=== PATIENT | male | born 1975 | race Caucasian/White ===

== ENCOUNTER 2016-05-16 09:05 | Emergency (ER) | payer OTHER ==
--- NOTE | 2016-05-17 10:00 | ER ---
ADMIT: 05/16/2016 RM/LOC: [facility] MR#: [id number] [address] [id number] LORIE GRIDER [address] [place] [id number] Emergency Room Report SEX: M AGE: 41 : 1975 DATE: 05/16/2016 ADDENDUM: A 41-year-old white male coming in after having a syncopal episode at work and hitting his head. CT scan was negative. Labs; CBC, chemistry, drug screen, urine alcohol all negative. EKG nothing acute. Evidently, there is question whether this happens to him more often or not. His chest x-ray was also negative. We gave him a liter of fluid. At this time, we did discharge him. He needs to follow up with his doctor. He has . He may go back to work tomorrow but no heavy equipment. Also, no driving until he sees his doctor. CONDITION ON DISCHARGE: Fair. Demetris Tang MD/ [place] JOB #: [id number] CC: Demetris Tang MD, Attending Physician UNKNOWN, Family Physician
== END 2016-05-16 11:50 | disposition home or self-care (01) ==
LOC: ER 09:05
DX: R55 Syncope and collapse (principal); F17.210 Nicotine dependence, cigarettes, uncomplicated; Z88.0 Allergy status to penicillin